=== PATIENT | male | born 1985 | race Caucasian/White ===

== ENCOUNTER 2022-12-15 19:32 | Inpatient (IN) | payer MEDICAID ==
[~2022-12-15 19:32] MED LIST: BENZ1TAB84 PO; OLAN10TA74 PO
[2022-12-15] MEDS ORDERED: HALOPERIDOL 5 MG TABLET PO PRN (20:00)
[2022-12-15 22:13] VITALS: BP 125/78; PULSE 72; RESP 18; TEMP 98.6; O2SAT 99
[2022-12-16] MEDS ORDERED: PETROLATUM,WHITE 28 GM JELLY TP PRN (06:00)
[2022-12-16] MEDS ORDERED: MAG HYDROX/AL HYDROX/SIMETH ES 30 ML SUSPENSION UDCUP PO PRN (06:00)
[2022-12-16] MEDS ORDERED: IBUPROFEN 600 MG TABLET PO PRN (06:00)
[2022-12-16] MEDS ORDERED: LOPERAMIDE HCL 2 MG CAPSULE PO PRN (06:00)
[2022-12-16] MEDS ORDERED: MAGNESIUM HYDROXIDE SUSPENSION 30 ML UDCUP PO PRN (06:00)
[2022-12-16] MEDS ORDERED: CloNIDine HCL 0.1 MG TABLET PO PRN (06:00)
[2022-12-16] MEDS ORDERED: BENZOCAINE/MENTHOL LOZENGE PO PRN (06:00)
[2022-12-16] MEDS ORDERED: ACETAMINOPHEN 325 MG TABLET PO PRN (06:00)
[2022-12-16] MEDS ORDERED: OMEPRAZOLE 20 MG CAPSULE PO PRN (06:00)
[2022-12-16] MEDS ORDERED: DOCUSATE SODIUM 100 MG CAPSULE PO PRN (06:00)
[2022-12-16] MEDS ORDERED: BACITRACIN 28 GM OINTMENT TP PRN (06:00)
[2022-12-16] MEDS ORDERED: ONDANSETRON HCL 4 MG TABLET PO PRN (06:00)
[2022-12-16] MEDS ORDERED: ALBUTEROL SULFATE HFA 90 MCG/PUFF 8 GM INHALER IH PRN (06:00)
[2022-12-16 08:09] LABS: BASOPHILS % (AUTO) 0.5 % (0.0-2.0); EOSINOPHILS % (AUTO) 8.5 % (1.0-6.0); HEMATOCRIT 42.9 % (41-53); HEMOGLOBIN 14.3 g/dL (13.5-17.5); LYMPHOCYTES % (AUTO) 28.6 % (22.0-44.0); MEAN CORPUSCULAR HEMOGLOBIN 29.8 pg (26.0-34.0); MEAN CORPUSCULAR HGB CONC 33.3 G/dL (31.0-37.0); MEAN CORPUSCULAR VOLUME 90 fL (80-100); MONOCYTES # (AUTO) 0.6 K/uL (0.1-1.0); MONOCYTES % (AUTO) 8.9 % (2.0-9.0); NEUTROPHILS # (AUTO) 3.7 K/uL (1.8-7.7); NEUTROPHILS % (AUTO) 53.5 % (40.0-70.0); PLATELET COUNT (AUTO) 182 K/uL (150-450); RED CELL DISTRIBUTION WIDTH 13.1 % (11.5-14.5); WHITE BLOOD COUNT (AUTO) 6.9 K/uL (4.5-11.0)
[2022-12-16 08:28] VITALS: BP 117/82; PULSE 80; RESP 17; TEMP 98; O2SAT 99
[2022-12-16 08:33] LABS: ALANINE AMINOTRANSFERASE 13 U/L (12-78); ALBUMIN 3.6 g/dL (3.4-5.0); ALKALINE PHOSPHATASE 81 U/L (46-116); ANION GAP 9 mmol/L (8-16); ASPARTATE AMINOTRANSFERASE 18 U/L (15-37); BILIRUBIN,TOTAL 0.6 mg/dL (0.1-1.0); CALCIUM, TOTAL 8.8 mg/dL (8.8-10.5); CARBON DIOXIDE 26 mmol/L (22-29); CHLORIDE 101 mmol/L (98-107); CHOL/HDL RATIO 3.8 (4.2-7.3); CHOLESTEROL 164 mg/dL (131-200); CREATININE 0.97 mg/dL (0.60-1.30); FREE T4 (FREE THYROXINE) 1.24 ng/dL (0.76-1.46); GLOMERULAR FILTR. RATE CALC > 60 mL/min (>60); GLUCOSE,RANDOM 108 mg/dL (70-110); HDL CHOLESTEROL 43 mg/dL (40-60); LDL CHOL (CALC.) 101 mg/dL (0-130); POTASSIUM 3.6 mmol/L (3.5-5.1); SODIUM SERUM 136 mmol/L (136-145); TOTAL PROTEIN, SERUM 7.2 g/dL (6.4-8.2); TRIGLYCERIDES 99 mg/dL (15-150); UREA NITROGEN, BLOOD 19 mg/dL (7-18)
[2022-12-16 08:38] LABS: HEMOGLOBIN A1C 5.2 % (3.8-5.6)
[2022-12-16 20:14] VITALS: BP 103/68; PULSE 63; RESP 17; TEMP 98; O2SAT 98
[2022-12-16] MEDS: OLANZapine 10 MG TABLET PO SCH (20:52)
[2022-12-17 08:34] VITALS: BP 106/62; PULSE 68; RESP 17; TEMP 97.7; O2SAT 99
[2022-12-17] MEDS ORDERED: OLANZapine 10 MG TABLET PO ONE (10:30)
[2022-12-17] MEDS: OLANZapine 10 MG TABLET PO SCH (21:14)
[2022-12-17 21:34] VITALS: BP 111/70; PULSE 70; RESP 18; TEMP 98.1; O2SAT 97
[2022-12-17 23:34] VITALS: BP 135/87; PULSE 60; RESP 18; TEMP 97.7; O2SAT 98
[2022-12-17] MEDS: ZOLPIDEM TARTRATE 10 MG TABLET PO PRN (23:41)
[2022-12-17] MEDS: LORazepam 2 MG TABLET PO PRN (23:41)
[2022-12-18 08:37] VITALS: BP 118/62; PULSE 96; RESP 19; TEMP 98.4; O2SAT 98
[2022-12-18] MEDS: LORazepam 2 MG TABLET PO PRN (17:49)
[2022-12-18] MEDS: OLANZapine 10 MG TABLET PO SCH (20:17)
[2022-12-18 20:19] VITALS: BP 120/66; PULSE 92; RESP 18; TEMP 98.2; O2SAT 98
[2022-12-19 08:29] VITALS: BP 111/75; PULSE 69; RESP 16; TEMP 98.1
[2022-12-19 20:24] VITALS: BP 125/85; PULSE 89; RESP 20; TEMP 97.8; O2SAT 98
[2022-12-19] MEDS: OLANZapine 10 MG TABLET PO SCH (20:32)
[2022-12-19] MEDS: LORazepam 2 MG TABLET PO PRN (21:13)
[2022-12-20 08:45] VITALS: BP 120/82; PULSE 88; RESP 16; TEMP 98.1; O2SAT 100
[2022-12-20 20:29] VITALS: BP 121/78; PULSE 76; RESP 18; TEMP 97.7; O2SAT 96
[2022-12-20] MEDS: OLANZapine 10 MG TABLET PO SCH (20:50)
[2022-12-20] MEDS: LORazepam 2 MG TABLET PO PRN (20:50)
[2022-12-21 08:26] VITALS: BP 114/73; PULSE 87; RESP 17; TEMP 97; O2SAT 97
[2022-12-21] MEDS: LORazepam 2 MG TABLET PO PRN ×2 (08:53→20:39)
[2022-12-21 17:41] LABS: GLUCOMETER DEV NAME(LOC) POC.BV; POC SARS-COV2 AG, FIA NEGATIVE (NEGATIVE)
[2022-12-21 20:28] VITALS: BP 131/79; PULSE 91; RESP 18; TEMP 97.6; O2SAT 97
[2022-12-21] MEDS: OLANZapine 10 MG TABLET PO SCH (20:38)
[2022-12-22 06:11] VITALS: TEMP 98
[2022-12-22 08:54] VITALS: BP 106/64; PULSE 77; RESP 17; TEMP 97.9; O2SAT 97
[2022-12-22 11:35] VITALS: TEMP 98
[2022-12-22 14:20] VITALS: TEMP 98.3
[2022-12-22 18:28] VITALS: TEMP 98.1
[2022-12-22] MEDS: OLANZapine 10 MG TABLET PO SCH (20:34)
[2022-12-22] MEDS: LORazepam 2 MG TABLET PO PRN (20:34)
[2022-12-22 20:39] VITALS: BP 116/81; PULSE 80; RESP 18; TEMP 98.3; O2SAT 97
[2022-12-23] VITALS (8 sets, daily range): BP systolic 104–123; BP diastolic 75–78; PULSE 83–91; RESP 17–19; TEMP 97.6–98.5; O2SAT 97–99
[2022-12-23] MEDS: RisperiDONE 1 MG TABLET PO SCH (17:32)
[2022-12-23] MEDS: OLANZapine 10 MG TABLET PO SCH (20:33)
[2022-12-23] MEDS: LORazepam 2 MG TABLET PO PRN (20:34)
[2022-12-24] VITALS (9 sets, daily range): BP systolic 114–119; BP diastolic 69–78; PULSE 80–97; RESP 18–20; TEMP 97.6–98.6; O2SAT 96–98
[2022-12-24] MEDS: RisperiDONE 1 MG TABLET PO SCH ×2 (08:25→17:16)
[2022-12-24] MEDS: OLANZapine 10 MG TABLET PO SCH (20:53)
[2022-12-24] MEDS: LORazepam 2 MG TABLET PO PRN (20:53)
[2022-12-24] MEDS: ZOLPIDEM TARTRATE 10 MG TABLET PO PRN (21:31)
[2022-12-25] VITALS (8 sets, daily range): BP systolic 118–126; BP diastolic 72–78; PULSE 95–97; RESP 18; TEMP 97.6–98.5; O2SAT 95–98
[2022-12-25 03:11] LABS: GLUCOMETER DEV NAME(LOC) POC.BV; POC SARS-COV2 AG, FIA NEGATIVE (NEGATIVE)
[2022-12-25] MEDS: RisperiDONE 1 MG TABLET PO SCH ×2 (09:02→16:28)
[2022-12-25] MEDS: OLANZapine 10 MG TABLET PO SCH (20:10)
[2022-12-26 02:04] VITALS: TEMP 98
[2022-12-26 06:09] VITALS: TEMP 97.7
[2022-12-26] MEDS: RisperiDONE 1 MG TABLET PO SCH ×2 (08:35→16:37)
[2022-12-26 10:47] VITALS: BP 116/72; PULSE 17; RESP 17; TEMP 98.7
[2022-12-26 14:04] VITALS: TEMP 97.1
[2022-12-26 18:17] VITALS: TEMP 98.6
[2022-12-26] MEDS: ZOLPIDEM TARTRATE 10 MG TABLET PO PRN (21:46)
[2022-12-26] MEDS: LORazepam 2 MG TABLET PO PRN (21:46)
[2022-12-26] MEDS: OLANZapine 10 MG TABLET PO SCH (21:46)
[2022-12-26 21:58] VITALS: BP 121/74; PULSE 18; RESP 18; TEMP 97.7; O2SAT 98
[2022-12-27 02:13] VITALS: TEMP 97.8
[2022-12-27 06:11] VITALS: TEMP 97.9
[2022-12-27 08:20] VITALS: BP 116/68; PULSE 86; RESP 17; TEMP 97.9; O2SAT 96
[2022-12-27] MEDS: RisperiDONE 1 MG TABLET PO SCH (08:43)
[2022-12-27 10:00] VITALS: TEMP 98
[2022-12-27 14:00] VITALS: TEMP 98.2
[2022-12-27] MEDS ORDERED: OLAN10TA74 PO (14:14)
[2022-12-27] MEDS ORDERED: RISP1TAB98 PO (14:15)
== END 2022-12-27 15:00 | disposition home or self-care (01) | DRG 750 ==
LOC: B3A 20:06
PROVIDERS: ADMIT Psychiatry & Neurology Psychiatry; ATTEND Psychiatry & Neurology Psychiatry
DX: F25.9 Schizoaffective disorder, unspecified (principal); F29 Unspecified psychosis not due to a substance or known physiological condition; F10.90 Alcohol use, unspecified, uncomplicated; F41.9 Anxiety disorder, unspecified; K59.00 Constipation, unspecified; G47.00 Insomnia, unspecified; Z20.822 Contact with and (suspected) exposure to COVID-19; Z59.00 Homelessness unspecified; Z72.0 Tobacco use
CPT/HCPCS: 80053; 80061; 83036; 84439; 85025